=== PATIENT | female | born 1995 | race Caucasian/White ===

== ENCOUNTER 2021-11-20 13:40 | Emergency (ER) | payer BC ==
[~2021-11-20] VITALS: Ht 165.1 cm; Wt 86.2 kg
[2021-11-20] MEDS ORDERED: OXYC5 PO (15:40)
== END 2021-11-20 15:56 | disposition home or self-care (01) ==
LOC: ER 13:40
DX: O9A.213 Injury, poisoning and certain other consequences of external causes complicating pregnancy, third trimester (principal); S30.0XXA Contusion of lower back and pelvis, initial encounter; Z3A.38 38 weeks gestation of pregnancy; W01.0XXA Fall on same level from slipping, tripping and stumbling without subsequent striking against object, initial encounter
CPT/HCPCS: 72170

== ENCOUNTER 2021-12-17 05:22 | Inpatient (IN) | payer BC, OTHER ==
[~2021-12-17] VITALS: Ht 165.1 cm; Wt 86.4 kg
[~2021-12-17 05:22] MED LIST: OXYC5 PO
[2021-12-17 06:42] LABS: BASOPHILS ABSOLUTE AUTO 0.04 K/mm3 (0.00-0.23); BASOPHILS PERCENT AUTO 0 % (0-2); EOSINOPHILS ABSOLUTE AUTO 0.02 K/mm3 (0.00-0.68); EOSINOPHILS PERCENT AUTO 0 % (0-6); Hematocrit 33.4 % (33.0-51.0); Hemoglobin 11.6 g/dL (11.5-16.0); IMMATURE GRAN ABSOLUTE AUTO 0.07 K/mm3 (0.00-0.10); IMMATURE GRAN PERCENT AUTO 1 % (0-1); LYMPHOCYTES ABSOLUTE AUTO 1.91 K/mm3 (0.84-5.20); LYMPHOCYTES PERCENT AUTO 18 % (21-46); MONOCYTES ABSOLUTE AUTO 0.51 K/mm3 (0.16-1.47); MONOCYTES PERCENT AUTO 5 % (4-13); Mean Corpuscular HGB 28.6 pg (26.0-34.0); Mean Corpuscular HGB Conc 34.7 g/dL (31.5-36.5); Mean Corpuscular Volume 83 fL (80-100); Mean Platelet Volume 11.5 fL (9.1-12.4); NEUTROPHILS ABSOLUTE AUTO 8.39 K/mm3 (1.96-9.15); NEUTROPHILS PERCENT AUTO 77 % (41-73); Platelet Count 212 K/mm3 (150-400); RDW Coefficient Variation 16.6 % (11.7-14.2); RDW Standard Deviation 49.7 fL (35.1-46.3); Red Blood Cell Count 4.05 M/mm3 (3.80-5.20); White Blood Cell Count 10.94 K/mm3 (4.00-11.30)
[2021-12-17] MEDS ORDERED: FAMO20 PO (12:01)
[2021-12-17] MEDS ORDERED: IRON18 MG PO (12:02)
[2021-12-17 23:56] LABS: BASOPHILS ABSOLUTE AUTO 0.03 K/mm3 (0.00-0.23); BASOPHILS PERCENT AUTO 0 % (0-2); EOSINOPHILS PERCENT AUTO 0 % (0-6); Hematocrit 33.5 % (33.0-51.0); IMMATURE GRAN ABSOLUTE AUTO 0.18 K/mm3 (0.00-0.10); IMMATURE GRAN PERCENT AUTO 1 % (0-1); LYMPHOCYTES ABSOLUTE AUTO 0.68 K/mm3 (0.84-5.20); LYMPHOCYTES PERCENT AUTO 4 % (21-46); MONOCYTES ABSOLUTE AUTO 1.15 K/mm3 (0.16-1.47); MONOCYTES PERCENT AUTO 6 % (4-13); Mean Corpuscular HGB 27.8 pg (26.0-34.0); Mean Corpuscular HGB Conc 32.8 g/dL (31.5-36.5); Mean Corpuscular Volume 85 fL (80-100); Mean Platelet Volume 10.6 fL (9.1-12.4); NEUTROPHILS ABSOLUTE AUTO 17.51 K/mm3 (1.96-9.15); NEUTROPHILS PERCENT AUTO 90 % (41-73); Platelet Count 213 K/mm3 (150-400); RDW Coefficient Variation 16.7 % (11.7-14.2); RDW Standard Deviation 52.2 fL (35.1-46.3); Red Blood Cell Count 3.95 M/mm3 (3.80-5.20); White Blood Cell Count 19.55 K/mm3 (4.00-11.30)
[2021-12-18 04:05] LABS: BASOPHILS ABSOLUTE AUTO 0.04 K/mm3 (0.00-0.23); BASOPHILS PERCENT AUTO 0 % (0-2); EOSINOPHILS PERCENT AUTO 0 % (0-6); Hematocrit 29.4 % (33.0-51.0); Hemoglobin 9.7 g/dL (11.5-16.0); IMMATURE GRAN ABSOLUTE AUTO 0.17 K/mm3 (0.00-0.10); IMMATURE GRAN PERCENT AUTO 1 % (0-1); LYMPHOCYTES ABSOLUTE AUTO 1.23 K/mm3 (0.84-5.20); LYMPHOCYTES PERCENT AUTO 6 % (21-46); MONOCYTES ABSOLUTE AUTO 1.29 K/mm3 (0.16-1.47); MONOCYTES PERCENT AUTO 6 % (4-13); Mean Corpuscular HGB 28.1 pg (26.0-34.0); Mean Corpuscular Volume 85 fL (80-100); Mean Platelet Volume 10.7 fL (9.1-12.4); NEUTROPHILS ABSOLUTE AUTO 18.94 K/mm3 (1.96-9.15); NEUTROPHILS PERCENT AUTO 87 % (41-73); Platelet Count 205 K/mm3 (150-400); RDW Coefficient Variation 16.1 % (11.7-14.2); RDW Standard Deviation 50.1 fL (35.1-46.3); Red Blood Cell Count 3.45 M/mm3 (3.80-5.20); White Blood Cell Count 21.67 K/mm3 (4.00-11.30)
[2021-12-18 17:01] LABS: BASOPHILS ABSOLUTE AUTO 0.04 K/mm3 (0.00-0.23); BASOPHILS PERCENT AUTO 0 % (0-2); EOSINOPHILS ABSOLUTE AUTO 0.03 K/mm3 (0.00-0.68); EOSINOPHILS PERCENT AUTO 0 % (0-6); Hematocrit 26.3 % (33.0-51.0); IMMATURE GRAN ABSOLUTE AUTO 0.18 K/mm3 (0.00-0.10); IMMATURE GRAN PERCENT AUTO 1 % (0-1); LYMPHOCYTES ABSOLUTE AUTO 2.52 K/mm3 (0.84-5.20); LYMPHOCYTES PERCENT AUTO 16 % (21-46); MONOCYTES ABSOLUTE AUTO 1.28 K/mm3 (0.16-1.47); MONOCYTES PERCENT AUTO 8 % (4-13); Mean Corpuscular HGB 28.9 pg (26.0-34.0); Mean Corpuscular HGB Conc 34.2 g/dL (31.5-36.5); Mean Corpuscular Volume 85 fL (80-100); Mean Platelet Volume 10.5 fL (9.1-12.4); NEUTROPHILS PERCENT AUTO 74 % (41-73); Platelet Count 193 K/mm3 (150-400); RDW Coefficient Variation 16.5 % (11.7-14.2); RDW Standard Deviation 50.6 fL (35.1-46.3); Red Blood Cell Count 3.11 M/mm3 (3.80-5.20); White Blood Cell Count 15.45 K/mm3 (4.00-11.30)
--- NOTE | 2021-12-18 20:23 | NUR ---
Pt is awake and sitting in a chair. Pt is holding Baby. No needs at this time.
[2021-12-19] MEDS ORDERED: DOCU100 PO (08:20)
[2021-12-19] MEDS ORDERED: IBUP800 PO (08:20)
[2021-12-19] MEDS ORDERED: ACET500 PO (08:21)
--- NOTE | 2021-12-19 11:15 | NUR ---
PT AND GIVEN WRITTEN AND VERBAL DC ISTRUCTIONS. QUESTIONS ANSWERED AND PT VERBALIZES UNDERSTANDING. WILL FOLLOW UP BACK HERE AT [facility] TUESDAY AT 1400. WILL ALSO SEE DR MANCILLA WITHIN 2 WEEKS OR SOONER IF PROBLEMS ARISE. PRESCRIPTION GIVEN FOR IBUPROFEN. EXTRA WITCH WESLY AND PADS PROVIDED. DISCHARGED HOME WITH AND .
== END 2021-12-19 11:50 | disposition home or self-care (01) | DRG 768 ==
LOC: OBS 05:22 → BC 05:23 → OBS 05:50 → BC 05:51
PROVIDERS: Advanced Practice Midwife; ADMIT Obstetrics & Gynecology
PROC: 10907ZC Drainage of Amniotic Fluid, Therapeutic from Products of Conception, Via Natural or Artificial Opening (ICD-10-PCS; principal; 2021-12-18)
PROC: 0DQR0ZZ Repair Anal Sphincter, Open Approach (ICD-10-PCS; 2021-12-18)
PROC: 0W3R7ZZ Control Bleeding in Genitourinary Tract, Via Natural or Artificial Opening (ICD-10-PCS; 2021-12-18)
PROC: 10H07YZ Insertion of Other Device into Products of Conception, Via Natural or Artificial Opening (ICD-10-PCS; 2021-12-18)
PROC: 3E033VJ Introduction of Other Hormone into Peripheral Vein, Percutaneous Approach (ICD-10-PCS; 2021-12-18)
PROC: 0W8NXZZ Division of Female Perineum, External Approach (ICD-10-PCS; 2021-12-18)
PROC: 10E0XZZ Delivery of Products of Conception, External Approach (ICD-10-PCS; 2021-12-18)
PROC: 3E0234Z Introduction of Serum, Toxoid and Vaccine into Muscle, Percutaneous Approach (ICD-10-PCS; 2021-12-18)
DX: O48.0 Post-term pregnancy (principal); Z37.0 Single live birth; O70.21 Third degree perineal laceration during delivery, IIIa; O72.1 Other immediate postpartum hemorrhage; O76 Abnormality in fetal heart rate and rhythm complicating labor and delivery; O63.0 Prolonged first stage (of labor); O77.0 Labor and delivery complicated by meconium in amniotic fluid; Z3A.42 42 weeks gestation of pregnancy; Z23 Encounter for immunization
CPT/HCPCS: 36415; 36430; 76856; 83036; 85025; 85384; 86703; 86850; 86900; 86901; 86923; 88307; A9270; J0290; J1580; J2210; J2405; J2590; J3010; J7030; J7120; P9016

== ENCOUNTER 2022-12-25 14:44 | Emergency (ER) | payer BC, OTHER ==
[~2022-12-25] VITALS: Ht 165.1 cm; Wt 68.5 kg
[~2022-12-25 14:44] MED LIST changes: +ACET500 PO; +DOCU100 PO; +FAMO20 PO; +IBUP800 PO; +IRON18 MG PO
[2022-12-25 14:54] VITALS: BP 126/85
[2022-12-25] MEDS ORDERED: Percocet 5-3251 EACH PO (16:44)
[2022-12-26] MEDS ORDERED: METPRE4DP PO (15:43)
== END 2022-12-25 16:44 | disposition home or self-care (01) ==
LOC: ER 14:44
DX: M54.2 Cervicalgia (principal); G89.29 Other chronic pain; Z98.1 Arthrodesis status; Z91.041 Radiographic dye allergy status; Z79.899 Other long term (current) drug therapy
CPT/HCPCS: 99283

== ENCOUNTER 2022-12-26 09:44 | Emergency (ER) | payer BC, OTHER ==
[~2022-12-26] VITALS: Ht 165.1 cm; Wt 68.0 kg
[~2022-12-26 09:44] MED LIST changes: +Percocet 5-3251 EACH PO
[2022-12-26 15:00] VITALS: BP 107/46
[2022-12-26] MEDS ORDERED: METPRE4DP PO (15:43)
== END 2022-12-26 15:54 | disposition home or self-care (01) ==
LOC: ER 09:44
DX: M54.12 Radiculopathy, cervical region (principal); Z91.041 Radiographic dye allergy status; Z79.899 Other long term (current) drug therapy
CPT/HCPCS: 72141; 99283-25; A9270; J1200

== ENCOUNTER → 2023-04-20 | Outpatient (CLI) | payer BC, OTHER ==
[~2023-04-20] MED LIST changes: +METPRE4DP PO
== END | disposition home or self-care (01) ==
LOC: LAB SHORT 11:13
DX: Z34.83 Encounter for supervision of other normal pregnancy, third trimester (principal); Z3A.36 36 weeks gestation of pregnancy
CPT/HCPCS: 87081; 87150